=== PATIENT | male | born 1990 | race American Indian/Alaskan Native ===

== ENCOUNTER 2019-02-09 14:16 | Emergency (ER) | payer OTHER ==
[2019-02-09] MEDS ORDERED: BOOSTRIX IM ONE (14:32)
--- NOTE | 2019-02-09 14:32 | Emergency Department Report ---
Chief Complaint: Wound/Laceration Stated Complaint: HAND LACERATION Time Seen by Provider: 02/09/19 14:28 - HPI History of Present Illness: pt presents with laceration to the right hand he states he cut it with a knife trying to make another hole in his belt unsure of last tetanus able to move all digits neurovascularly intact bleeding controlled with gauze wrap MSE screening note: Focused history and physical exam performed. Due to findings the following was ordered: tetanus immunization ED Disposition for MSE Condition: Stable
[2019-02-09] MEDS ORDERED: XYLOCAINE 1% 20 mL INFILTRATI ONE (16:19)
[2019-02-09] MEDS ORDERED: NORCO 10/325 PO ONE (16:19)
--- NOTE | 2019-02-09 17:06 | Emergency Department Report ---
ED Laceration HPI - HPI Chief Complaint: Wound/Laceration Stated Complaint: HAND LACERATION Time Seen by Provider: 02/09/19 14:28 Occurred When: Today Location: Upper Extremity Severity: mild Tetanus Status: Not up to Date Laceration Symptoms: Yes Pain, No Foreign Body Sensation, No Numbness, No Weakness Other History: This is a 28-year-old male nontoxic, well nourished in appearance, no acute signs of distress presents to the ED with c/o of right hand laceration. Patient stated that he cut himself with a knife accidentally. Denies any decreased sensation or range of motion. Denies any fever, chills, nausea, vomiting, chest pain, shortness of breath, headache or stiff neck. Patient denies any allergies or significant past medical history. Denies being up-to-date with tetanus. ED Review of Systems ROS: Stated complaint: HAND LACERATION Other details as noted in HPI Constitutional: denies: chills, fever Eyes: denies: eye pain, eye discharge, vision change ENT: denies: ear pain, throat pain Respiratory: denies: cough, shortness of breath, wheezing Cardiovascular: denies: chest pain, palpitations Endocrine: no symptoms reported Gastrointestinal: denies: abdominal pain, nausea, diarrhea Genitourinary: denies: urgency, dysuria Musculoskeletal: denies: back pain, joint swelling, arthralgia Skin: denies: rash, lesions Neurological: denies: headache, weakness, paresthesias Psychiatric: denies: anxiety, depression Hematological/Lymphatic: denies: easy bleeding, easy bruising ED Past Medical Hx - Past Medical History Previous Medical History?: No - Surgical History Past Surgical History?: No - Social History Smoking Status: Never Smoker Substance Use Type: None - Medications Home Medications: Home Medications Medication Instructions Recorded Confirmed Last Taken Type Acetaminophen/Codeine [Tylenol 1 tab PO Q6H PRN #12 tab 02/09/19 Unknown Rx /Codeine # 3 tab] Sulfamethoxazole/Trimethoprim 1 each PO BID #14 tablet 02/09/19 Unknown Rx [Bactrim DS TAB] Laceration Physical Exam - Exam General: Vital signs noted. No distress. Alert and acting appropriately. Wound Length (cm): 3 Laceration Location: Upper Extremity Full Body Front + Back: 1 - 3 cm laceration Laceration Exam: Yes Normal Distal CMS, No Foreign Body, No Exposed Tendon, Vessel, or Nerve, No Tendon Injury ED Course Vital Signs 02/09/19 14:29 Temperature 98.3 F Pulse Rate 68 Respiratory 16 Rate Blood Pressure 116/75 O2 Sat by Pulse 98 Oximetry - Reevaluation(s) Reevaluation #1: 02/09/19 17:06 Patient is speaking in full sentences with no signs of distress noted. - Laceration /Wound Repair Right Hand Wound Location: upper extremity (right hand) Wound Length (cm): 3 Wound's Depth, Shape: superficial Wound Explored: clean Irrigated w/ Saline (ccs): 40 Betadine Prep?: Yes Anesthesia: 1% Lidocaine Volume Anesthetic (ccs): 6 Wound Repaired With: sutures Suture Size/Type: 4:0 Number of Sutures: 6 Layer Closure?: Yes Deep Layer Suture Size/Type: 4:0 (Vicryl) Number Deep Layer Sutures: 1 Sterile Dressing Applied?: Yes Progress: Under sterile field, I used Betadine to clean the area. I then used 40 mL of normal saline to flush the area. I then used 1% lidocaine plain and injected 6 mL to the wound. I did use 4-0 Vicryl with total of one stitch for deeper dermis. I then used a 4-0 Prolene to suture the laceration. Number of stitches 6. I then applied a sterile 4 x 4 with tape. Minimal bleeding noted but is und er control. Patient tolerated procedure well with no signs of distress. ED Medical Decision Making - Medical Decision Making This is a 28-year-old male that presents with laceration. Patient is stable and was examined by me. The laceration suturing has been performed and has been performed and patient tolerated well. A sterile dressing has been applied. Patient was educated on proper wound care. Patient is discharged with Bactrim and Tylenol with codeine and was instructed not to operate any machinery while taking Tylenol with codeine due to drowsiness. Patient was instructed to return in 10 days for suture removal. Patient was instructed to refer to Follow-up with a primary care doctor in 3-5 days or if symptoms worsen and continue return to emergency room as soon as possible. At time of discharge, the patient does not seem toxic or ill in appearance. No acute signs of distress noted. Patient agrees to discharge treatment plan of care. No further questions noted by the patient. Critical care attestation.: If time is entered above; I have spent that time in minutes in the direct care of this critically ill patient, excluding procedure time. ED Disposition Clinical Impression: Laceration Disposition: [id number] TO HOME OR SELFCARE Is pt being admited?: No Does the pt Need Aspirin: No Condition: Stable Instructions: Laceration (ED), Suture Care (ED), Acetaminophen/Codeine (By mouth) Additional Instructions: Follow-up with a primary care doctor in 3-5 days or if symptoms worsen and continue return to emergency room as soon as possible. Return in 10 days for suture removal. Do not operate any machinery while taking Tylenol with codeine as this may cause drowsiness. Prescriptions: Sulfamethoxazole/Trimethoprim [Bactrim DS TAB] 1 each PO BID #14 tablet Acetaminophen/Codeine [Tylenol /Codeine # 3 tab] 1 tab PO Q6H PRN #12 tab PRN Reason: Pain , Severe (7-10) Referrals: MIKE AVILESDATIL MD CAYLA [Primary Care Provider] - 3-5 Days PRIMARY CAREMD [Referring] - 3-5 Days ANATOLY BECKMAN MD [Staff Physician] - 3-5 Days [facility] [Outside] - 3-5 Days Forms: Work/School Release Form(ED)
[2019-02-09 18:00] VITALS: BP 118/71
== END 2019-02-09 17:59 | disposition home or self-care (01) ==
LOC: EDBD → ED 14:16
DX: S61.411A Laceration without foreign body of right hand, initial encounter (principal); W26.0XXA Contact with knife, initial encounter; Y93.89 Activity, other specified; Y92.090 Kitchen in other non-institutional residence as the place of occurrence of the external cause; Y99.8 Other external cause status
CPT/HCPCS: 90471; 90715

== ENCOUNTER 2019-02-19 11:39 | Emergency (ER) | payer SELFPAY ==
[2019-02-19 11:44] VITALS: BP 126/78
--- NOTE | 2019-02-19 11:54 | Emergency Department Report ---
Suture/Staple Removal - HPI Chief Complaint: Laceration/Recheck/Suture Stated Complaint: SUTURE REMOVAL Time Seen by Provider: 02/19/19 11:45 When Sutures or Alejandra Placed: 11-14 Days Ago Wound Location: right hand ED Review of Systems ROS: Stated complaint: SUTURE REMOVAL Other details as noted in HPI Comment: All other systems reviewed and negative ED Past Medical Hx - Past Medical History Previous Medical History?: No - Surgical History Past Surgical History?: No - Social History Smoking Status: Never Smoker Substance Use Type: None - Medications Home Medications: Home Medications Medication Instructions Recorded Confirmed Last Taken Type Acetaminophen/Codeine [Tylenol 1 tab PO Q6H PRN #12 tab 02/09/19 Unknown Rx /Codeine # 3 tab] Sulfamethoxazole/Trimethoprim 1 each PO BID #14 tablet 02/09/19 Unknown Rx [Bactrim DS TAB] Suture Removal Exam - Exam General: Vital signs noted. No distress. Alert and acting appropriately. Wound: No Pathologic Erythema, No Tenderness, No Drainage, No Pus, No Wound Dehiscence Other Systems: All other systems reviewed and are unremarkable. ED Course Vital Signs 02/19/19 11:41 Temperature 98.2 F Pulse Rate 68 Respiratory 18 Rate Blood Pressure 126/78 O2 Sat by Pulse 98 Oximetry ED Recheck MDM - Medical Decision Making 20 y o male presents with suture removal 6 sutures removed from right medial aspect of arm no wound dehisc discussed f/u with pcp Critical care attestation.: If time is entered above; I have spent that time in minutes in the direct care of this critically ill patient, excluding procedure time. ED Disposition Clinical Impression: Encounter for removal of sutures Disposition: - TO HOME OR SELFCARE Is pt being admited?: No Does the pt Need Aspirin: No Condition: Stable Instructions: Acute Wound Care (ED) Additional Instructions: f/u with your pcp Referrals: [facility] [Outside] - 3-5 Days [facility] [Outside] - 3-5 Days Time of Disposition: 11:55
== END 2019-02-19 12:05 | disposition home or self-care (01) ==
LOC: ED 11:39
DX: S61.411D Laceration without foreign body of right hand, subsequent encounter (principal); X58.XXXD Exposure to other specified factors, subsequent encounter